=== PATIENT | female | born 1965 | race African-American/Black ===

== ENCOUNTER 2016-05-26 08:54 | Day surgery (SDC) | payer OTHER ==
[2016-05-25 10:56] VITALS: BMI 30.9
[2016-05-26] MEDS ORDERED: PROPOFOL 20 ML ONE ×3 (09:41→11:53)
[2016-05-26] MEDS ORDERED: MIDAZOLAM HCL 2 MG/2 ML SINGLE DOSE VIAL ONE ×2 (09:42→11:36)
--- NOTE | 2016-05-26 09:51 | HP ---
[facility]ellite [facility] - Chief Complaint Chief Complaint: left wrist pain - Past Medical History Allergies/Adverse Reactions: Allergies Allergy/AdvReac Type Severity Reaction Status Date / Time No Known Allergies Allergy Verified 02/05/15 11:51 - Current Medications Current Medications: Home Medications Medication Instructions Recorded Albuterol Sulfate [Proair Hfa -] 1 - 2 inh PO TID 02/05/15 Cyclobenzaprine HCl [Flexeril] 10 mg PO TID 02/05/15 Gabapentin [Neurontin] 300 mg PO TID 02/05/15 Metformin HCl [Metformin HCl ER] 500 mg PO PRN 02/05/15 Montelukast Na [Singulair -] 10 mg PO HS 02/05/15 Oxycodone HCl [Oxycontin] 30 mg PO BID 02/05/15 Sertraline HCl [Zoloft] 200 mg PO DAILY 02/05/15 Trazodone HCl [Desyrel -] 150 mg PO HS 02/05/15 Lisinopril 10 mg PO PRN 05/25/16 Risperidone [Risperdal] 1 mg PO HS 05/25/16 Satellite Physical Exam - Physical Examination Vital Signs: Vital Signs Period Temp Pulse Resp BP Sys/Bertrand Pulse Ox Last 24 Hr 98.0 F 59 20 103/66 100 General Appearance: Well Nourished, Well Developed, Alert & Oriented x3 ENT: Clear Lung: Normal air movement Heart: Regular rate & rhythm Extremities: Other (left wrist- + ttp, decr rom, +finkelsteins, nvi MRI + tfcc tear) Neurological: Intact, Alert, Oriented Satellite Impression/Plan - Impression/Plan Impression: left wrist dequervains, tfcc tear Operative Procedure: left wrist arthroscopy, dequervains release Date to be Performed: 05/26/16
[2016-05-26] MEDS ORDERED: ceFAZolin SODIUM 1 GM VIAL ONE (11:52)
[2016-05-26] MEDS ORDERED: LIDOCAINE HCL/PF 2% SDV 5ML VIAL ONE (11:52)
[2016-05-26] MEDS ORDERED: ceFAZolin SODIUM 1 GM VIAL IVPB ONE (12:05)
[2016-05-26] MEDS ORDERED: LIDOCAINE HCL 1%, 10 MG/ML (20ML VIAL) ONE (12:20)
[2016-05-26] MEDS ORDERED: BUPIVACAINE HCL/PF 0.5% (5MG/ML) 10 ML VIAL ONE (12:20)
[2016-05-26] MEDS ORDERED: ePHEDrine SULFATE 50 MG/1 ML AMPULE ONE (12:27)
--- NOTE | 2016-05-26 13:17 | OP ---
Operative Note - Note: Operative Date: 05/26/16 Pre-Operative Diagnosis: left wrist Dequervains, and Ulnocarpal pain, possible TFCC tear Operation: left Dequervain's release, tendon sheath excision, Wrist arthroscopy , debridement Post-Operative Diagnosis: Same as Pre-op Surgeon: Chris Laura Chemical Unit Operator: Lopez Bergman Anesthesiologist/COMMUNITY ACTION WORKER: Briana Pulido Anesthesia: General, Local Specimens Removed: shavings, and Tendon sheath Estimated Blood Loss (mls): 0 Drains, Volume Out (mls): 0 Blood Volume Replaced (mls): 0 Fluid Volume Replaced (mls): 500 Operative Report Dictated: Yes
[2016-05-26] MEDS ORDERED: oxyCODONE HCL 5 MG TABLET PO PRN (13:27)
[2016-05-26] MEDS ORDERED: IBUPROFEN 800 MG/8 ML IJ IVPB PRN (13:27)
[2016-05-26] MEDS ORDERED: ONDANSETRON 4 MG/2 ML VIAL IVPUSH PRN (13:27)
[2016-05-26] MEDS ORDERED: KETOROLAC TROMETHAMINE 30 MG/1 ML VIAL ONE (13:30)
[2016-05-26] MEDS ORDERED: LACTATED RINGERS SOLUTION 1,000 ML IV SCH (13:30)
[2016-05-26] MEDS ORDERED: LIDOCAINE HCL 1%, 10 MG/ML (20ML VIAL) IJ ONE (13:31)
[2016-05-26] MEDS ORDERED: BUPIVACAINE HCL/PF 0.5% (5MG/ML) 10 ML VIAL IJ ONE (13:32)
[2016-05-26 14:36] VITALS: TEMP 97.3
[2016-05-26] MEDS ORDERED: oxyCODONE HCL 5 MG TABLET ONE (14:58)
[2016-05-26 17:42] VITALS: BP 136/70; PULSE 68
--- NOTE | 2016-05-27 12:36 | OP ---
DATE OF OPERATION: 05/26/2016 PREOPERATIVE DIAGNOSIS: Left wrist pain, de Quervain tenosynovitis, possible triangular fibrocartilage complex tear. POSTOPERATIVE DIAGNOSIS: Left wrist pain, de Quervain tenosynovitis, possible triangular fibrocartilage complex tear. PROCEDURE: Left wrist open de Quervain release, tendon sheath excision, left wrist arthroscopy and debridement. SURGEON: Juan Comer MD ACTIVITY COORDINATOR: ZOHREH Pelaez, ANESTHESIA: Dr. Pulido, LMA anesthesia, local injection of 10 mL 0.5% Marcaine 1% lidocaine mix. DRAINS: None. COMPLICATIONS: None. SPECIMENS: None. FLUID REPLACEMENT: 500 mL. BLOOD LOSS: None. INDICATIONS: This patient is a 50-year-old female with 2 problems. She has left wrist recurrent de Quervain tenosynovitis and ulnocarpal pain. An MRI suggested an occult tear of the TFCC. Therefore, she was scheduled for a left wrist open de Quervain release and wrist arthroscopy. We had extensive preoperative discussions. She understands the potential risks, complications, alternatives, benefits to surgery versus nonsurgical treatment. DESCRIPTION OF PROCEDURE: The patient was brought to the operating room. Peripheral IV place. IV sedation given. Then 1 g of IV Ancef given. Tourniquet was applied to left upper arm. Left upper extremity was prepped and draped in usual sterile fashion, elevated, exsanguinated, and tourniquet inflated to 250 mmHg. We started out by doing the de Quervain release. This was done in the standard fashion. A longitudinal incision was marked out with a marking pen. Then 10 mL of 0.5% Marcaine 1% lidocaine mix was injected in and around the surgical incision as well as the future wrist arthroscopy portals. A No. 15 scalpel blade was utilized to cut into the skin. Subcutaneous hemostasis was achieved with a Bovie cautery. Dissection done down through the subcutaneous fat to the 1st dorsal wrist compartment. A freer elevator was used to remove soft tissue adhesions to the compartment then under direct visualization first distally then proximally using a No. 15 scalpel blade and the Littler scissors to release the 1st dorsal wrist compartment, I excised a portion of the roof of the tendon sheath about 2-3 mm and did a tenosynovectomy. The tunnel was very tight especially distally, and there was a lot of tenosynovium. I released it with Littler scissors more distally and proximally. I was able to bring the 1st dorsal wrist compartment tendons out through the wound with a Ragnell retractor. The area was copiously irrigated and washed out. Then 4-0 undyed Vicryl was used to close the deep dermal layer. Final skin reapproximation was done with a running subcuticular 4-0 Biosyn stitch. The area was then washed and dried and covered with Steri-Strips. Attention turn to the wrist arthroscopy. The arthroscopy tower was set up in a standard fashion with the finger traps, and about 12 pounds of longitudinal traction was applied. The wrist was put into slight flexion. I marked out the bony landmarks with a marking pen. A radial outflow portal was established. A 3-4 portal was established in a standard fashion first with a No. 15 scalpel blade then a pointy trocar through the capsule then a blunt trocar into the joint. I introduced the arthroscope into the radiocarpal/ulnocarpal joint. Under direct visualization first using a spinal needle, I introduced a blunt trocar into the joint in the area of the TFCC and probed it. The patient had a relatively large amount of volar and dorsal synovium and redundant capsule, which was frayed and into the joint. Therefore, this was debrided with a small joint shaver. Photographs were taken before and after. The ligament itself looked fine. The cartilage on the distal aspect of the radius looked good. The scapholunate interval looked good. The undersurface of the lunate and the sphenoid looked good. The TFCC all looked good. I introduced the probe, and the patient had normal "trampoline test". The periphery was well attached. The TFCC looked good. There was nothing that I saw that was abnormal of the TFCC itself. Therefore, the only debridement that was required was of the volar and dorsal synovium and redundant capsule. The area was copiously irrigated and washed out. All instrumentation removed. Excess saline removed. The arthroscopy portal was closed with nylon suture. The area was washed and dried and covered with Xeroform and 4 x 4 gauze, fluffs between the fingers, Webril, and a 4-inch Ortho-Glass fiberglass thumb spica splint was placed wrapped with Mikhail and Coban. The tourniquet was taken down after total tourniquet time of about 18 minutes. There were no complications during the case. The patient tolerated the procedure well and was brought to the ambulatory recovery room in stable condition. JUAN COMER M.D. [id number]
--- NOTE | 2016-05-28 09:44 | PATH ---
Surgical Pathology Report Patient Name: JEAN PAUL PATRICK [facility]. Rec. #: [id number] /Age/Gender: 1965 (Age: 50) / F Account: [id number] Location: [facility] SURGICAL Taken: 05/26/2016 Received: 05/26/2016 Reported: 05/28/2016 Physicians: Chris Laura M.D. Specimen(s) Received TENDON SHEATH Clinical History Left wrist TFCC tear with left wrist De Quervain's contracture Final Diagnosis TENDON SHEATH, LEFT WRIST, DEQUERVAIN'S RELEASE:BENIGN TENOSYNOVIAL FIBROCONNECTIVE AND FIBROFATTY TISSUE WITH FOCAL MYXOHYALIN DEGENERATION. Electronically Signed Rusty Stapleton M.D. Gross Description Received in formalin, labeled "tendon sheath left wrist" is a 1.2 x 1.0 x 0.2 cm aggregate of sanchez-yellow soft tissue fragments. The specimen is entirely submitted in one cassette. 05/26/201605/26/2016
== END 2016-05-26 16:30 | disposition home or self-care (01) ==
LOC: JASU-SURG 08:54
PROVIDERS: ATTEND Orthopaedic Surgery
PROC: 0L860ZZ Division of Left Lower Arm and Wrist Tendon, Open Approach (ICD-10-PCS; principal; 2016-05-26 11:30)
PROC: 0RBP4ZZ Excision of Left Wrist Joint, Percutaneous Endoscopic Approach (ICD-10-PCS; 2016-05-26 11:30)
DX: M65.4 Radial styloid tenosynovitis [de Quervain] (principal)
CPT/HCPCS: 88304-TC; 94760